=== PATIENT | male | born 1980 | race Caucasian/White ===

== ENCOUNTER 2018-05-22 23:40 | Emergency (ER) | payer BC, OTHER ==
[2018-05-23] MEDS: ONDANSETRON 4MG/2ML VIAL (J2405) IV (00:05)
[2018-05-23] MEDS: KETOROLAC 30 MG/ML VIAL (J1885) IV (00:06)
[2018-05-23] MEDS: NS 1,000 ML IV (00:06)
[2018-05-23] MEDS: MORPHINE 4 MG/ML 1ML VIAL/SYRINGE (J2270) IV ×2 (00:06→01:03)
[2018-05-23 00:17] LABS: BASO # 0.1 10^3/uL (0.0-0.2); BASO % 0.5 % (0.0-1.0); EOS # 0.1 10^3/uL (0.0-0.50); EOS % 0.9 % (0.0-3.0); HEMATOCRIT 42.9 % (42.0-52.0); HEMOGLOBIN 14.5 g/dl (13.5-17.5); IMMATURE GRANULOCYTE % 0.3 % (0-3.0); LYMPH # 1.4 10^3/uL (1.5-4.5); LYMPH % 8.9 % (24.0-44.0); MEAN CORPUSCULAR HEMOGLOBIN 28.2 pg (27.0-33.0); MEAN CORPUSCULAR HGB CONC 33.8 g/dl (32.0-36.5); MEAN CORPUSCULAR VOLUME 83.3 fl (80.0-96.0); MONO # 0.8 10^3/uL (0.0-0.8); MONO % 4.9 % (0.0-5.0); NEUTROPHILS # 12.9 10^3/uL (1.8-7.7); NEUTROPHILS % 84.5 % (36.0-66.0); PLATELET COUNT, AUTOMATED 368 10^3/uL (150-450); RED BLOOD COUNT 5.15 10^6/uL (4.30-6.10); RED CELL DISTRIBUTION WIDTH 12.9 % (11.5-14.5); WHITE BLOOD COUNT 15.3 10^3/uL (4.0-10.0)
[2018-05-23 00:30] LABS: ALBUMIN 4.5 GM/DL (3.2-5.2); ALBUMIN/GLOBULIN RATIO 1.45 (1.00-1.93); ALKALINE PHOSPHATASE 77 U/L (45-117); ALT/SGPT 35 U/L (12-78); ANION GAP 13 MEQ/L (8-16); AST/SGOT 17 U/L (7-37); BILIRUBIN,DIRECT 0.1 MG/DL (0.0-0.2); BILIRUBIN,TOTAL 0.3 MG/DL (0.2-1.0); BLOOD UREA NITROGEN 16 MG/DL (7-18); CALCIUM LEVEL 9.6 MG/DL (8.5-10.1); CARBON DIOXIDE LEVEL 22 MEQ/L (21-32); CHLORIDE LEVEL 104 MEQ/L (98-107); CREATININE FOR GFR 1.37 MG/DL (0.70-1.30); GLOMERULAR FILTRATION RATE > 60.0 (>60); GLUCOSE, FASTING 162 MG/DL (70-100); LIPASE 80 U/L (73-393); POTASSIUM SERUM 3.4 MEQ/L (3.5-5.1); SODIUM LEVEL 139 MEQ/L (136-145); TOTAL PROTEIN 7.6 GM/DL (6.4-8.2)
[2018-05-23] MEDS: METOCLOPRAMIDE INJ 10MG/2ML VIAL (J2765) IV (01:00)
[2018-05-23] MEDS: PERCOCET 5MG/325MG TAB PO (02:41)
[2018-05-23 03:47] LABS: KETONE, URINE AUTO RFX TRACE mg/dL (NEGATIVE); LEUKOCYTE ESTERASE UR AUTO RFX NEGATIVE (NEGATIVE); MUCUS, URINE RFX SMALL (NEGATIVE); NITRITE, URINE AUTO RFX NEGATIVE (NEGATIVE); RBC, URINE AUTO RFX TNTC /HPF (0-3); SPECIFIC GRAVITY UR AUTO RFX 1.024 (1.002-1.035); SQUAM EPITHELIAL CELL UR AURFX 0 /HPF (0-6); WBC, URINE AUTO RFX 1 /HPF (0-3)
[2018-05-23] MEDS: TAMSULOSIN 0.4 MG CAP PO (05:49)
[2018-05-23] MEDS: CIPROFLOXACIN 500 MG TAB PO (05:49)
[2018-05-23] MEDS: OXYCODONE/APAP 5MG/325MG(BULK FOR ED) 1 TABLET PO (05:49)
== END 2018-05-23 05:54 | disposition home or self-care (01) ==
LOC: M ED 23:40
DX: N20.1 Calculus of ureter (principal); R11.2 Nausea with vomiting, unspecified; I10 Essential (primary) hypertension; Z79.899 Other long term (current) drug therapy
CPT/HCPCS: J2270

== ENCOUNTER 2018-05-28 00:05 | Emergency (ER) | payer BC ==
[2018-05-28] MEDS: KETOROLAC 30 MG/ML VIAL (J1885) IV ×2 (00:37)
[2018-05-28] MEDS ORDERED: ONDANSETRON 4MG/2ML VIAL (J2405) As Ordered ×2 (00:41)
[2018-05-28] MEDS: ONDANSETRON 4MG/2ML VIAL (J2405) IV ×2 (00:43)
[2018-05-28 00:46] LABS: BASO # 0.1 10^3/uL (0.0-0.2); BASO % 0.4 % (0.0-1.0); EOS # 0.1 10^3/uL (0.0-0.50); EOS % 0.5 % (0.0-3.0); HEMATOCRIT 40.3 % (42.0-52.0); HEMOGLOBIN 13.5 g/dl (13.5-17.5); IMMATURE GRANULOCYTE % 0.4 % (0-3.0); LYMPH % 6.9 % (24.0-44.0); MEAN CORPUSCULAR HGB CONC 33.5 g/dl (32.0-36.5); MEAN CORPUSCULAR VOLUME 83.6 fl (80.0-96.0); MONO # 0.5 10^3/uL (0.0-0.8); MONO % 3.6 % (0.0-5.0); NEUTROPHILS # 13.1 10^3/uL (1.8-7.7); NEUTROPHILS % 88.2 % (36.0-66.0); PLATELET COUNT, AUTOMATED 381 10^3/uL (150-450); RED BLOOD COUNT 4.82 10^6/uL (4.30-6.10); WHITE BLOOD COUNT 14.9 10^3/uL (4.0-10.0)
[2018-05-28 01:03] LABS: ALBUMIN 4.3 GM/DL (3.2-5.2); ALBUMIN/GLOBULIN RATIO 1.43 (1.00-1.93); ALKALINE PHOSPHATASE 72 U/L (45-117); ALT/SGPT 36 U/L (12-78); ANION GAP 13 MEQ/L (8-16); AST/SGOT 16 U/L (7-37); BILIRUBIN,TOTAL 0.4 MG/DL (0.2-1.0); BLOOD UREA NITROGEN 20 MG/DL (7-18); CALCIUM LEVEL 8.9 MG/DL (8.5-10.1); CARBON DIOXIDE LEVEL 25 MEQ/L (21-32); CHLORIDE LEVEL 102 MEQ/L (98-107); CREATININE FOR GFR 1.34 MG/DL (0.70-1.30); GLOMERULAR FILTRATION RATE > 60.0 (>60); GLUCOSE, FASTING 138 MG/DL (70-100); LIPASE 58 U/L (73-393); POTASSIUM SERUM 3.8 MEQ/L (3.5-5.1); SODIUM LEVEL 140 MEQ/L (136-145); TOTAL PROTEIN 7.3 GM/DL (6.4-8.2)
[2018-05-28 01:43] LABS: AMORPHOUS SEDIMENT MODERATE (NEGATIVE); APPEARANCE, URINE CLOUDY (CLEAR); BACTERIA, URINE AUTO NEGATIVE (NEGATIVE); BILIRUBIN, URINE AUTO NEGATIVE (NEGATIVE); BLOOD, URINE BLOOD 1+ (NEGATIVE); COLOR, URINE YELLOW (YELLOW); GLUCOSE, URINE (UA) AUTO 1+ mg/dL (NEGATIVE); KETONE, URINE AUTO 1+ mg/dL (NEGATIVE); LEUKOCYTE ESTERASE, URINE AUTO NEGATIVE (NEGATIVE); MUCUS, URINE SMALL (NEGATIVE); NITRITE, URINE AUTO NEGATIVE (NEGATIVE); PROTEIN, URINE AUTO NEGATIVE (NEGATIVE); RBC, URINE AUTO 23 /HPF (0-3); SPECIFIC GRAVITY URINE AUTO 1.023 (1.002-1.035); SQUAMOUS EPITHELIAL CELL UR AU 0 /HPF (0-6); WBC, URINE AUTO 0 /HPF (0-3)
[2018-05-28] MEDS: MORPHINE 4 MG/ML 1ML VIAL/SYRINGE (J2270) IV ×2 (02:06)
== END 2018-05-28 02:31 | disposition home or self-care (01) ==
LOC: M ED 00:05
DX: N20.1 Calculus of ureter (principal); I10 Essential (primary) hypertension; Z79.899 Other long term (current) drug therapy; Z88.7 Allergy status to serum and vaccine
CPT/HCPCS: J2270

== ENCOUNTER → 2018-06-02 | Outpatient (REF) | payer BC ==
[2018-06-02 16:35] LABS: APPEARANCE, URINE CLEAR (CLEAR); BACTERIA, URINE AUTO NEGATIVE (NEGATIVE); BILIRUBIN, URINE AUTO NEGATIVE (NEGATIVE); BLOOD, URINE BLOOD NEGATIVE (NEGATIVE); COLOR, URINE YELLOW (YELLOW); GLUCOSE, URINE (UA) AUTO NEGATIVE (NEGATIVE); KETONE, URINE AUTO NEGATIVE (NEGATIVE); LEUKOCYTE ESTERASE, URINE AUTO NEGATIVE (NEGATIVE); MUCUS, URINE SMALL (NEGATIVE); NITRITE, URINE AUTO NEGATIVE (NEGATIVE); PROTEIN, URINE AUTO NEGATIVE (NEGATIVE); RBC, URINE AUTO 0 /HPF (0-3); SPECIFIC GRAVITY URINE AUTO 1.019 (1.002-1.035); SQUAMOUS EPITHELIAL CELL UR AU 0 /HPF (0-6); WBC, URINE AUTO 2 /HPF (0-3)
[2018-06-02 17:04] LABS: HEMATOCRIT 46.1 % (42.0-52.0); HEMOGLOBIN 14.8 g/dl (13.5-17.5); MEAN CORPUSCULAR HEMOGLOBIN 27.8 pg (27.0-33.0); MEAN CORPUSCULAR HGB CONC 32.1 g/dl (32.0-36.5); MEAN CORPUSCULAR VOLUME 86.5 fl (80.0-96.0); PLATELET COUNT, AUTOMATED 460 10^3/uL (150-450); RED BLOOD COUNT 5.33 10^6/uL (4.30-6.10); RED CELL DISTRIBUTION WIDTH 13.3 % (11.5-14.5); WHITE BLOOD COUNT 8.5 10^3/uL (4.0-10.0)
[2018-06-02 17:39] LABS: INR 0.98; PARTIAL THROMBOPLASTIN TIME 34.5 SECONDS (25.4-37.6); PROTHROMBIN TIME 13.1 SECONDS (12.1-14.4)
== END ==
LOC: M LABSMT 10:51
DX: Z01.818 Encounter for other preprocedural examination (principal); N20.0 Calculus of kidney
CPT/HCPCS: 85610

== ENCOUNTER 2018-06-05 07:17 | Day surgery (SDC) | payer BC ==
[~2018-06-05 07:17] MED LIST: LIDOCAINE 1% MDV 20ML VIAL SQ
[2018-06-05] MEDS: LR 1,000 ML IV (07:30)
[2018-06-05] MEDS ORDERED: ONDANSETRON 4MG/2ML VIAL (J2405) As Ordered (08:11)
[2018-06-05] MEDS ORDERED: PROPOFOL 200 MG/20 ML VIAL As Ordered (08:11)
[2018-06-05] MEDS ORDERED: LIDOCAINE 2% INJ 100 MG/5 ML SDV (FOR ANES.) As Ordered (08:11)
[2018-06-05] MEDS ORDERED: dexameTHASONE 4 MG/ML 1ML VIAL (J1100) As Ordered ×2 (08:11)
[2018-06-05] MEDS ORDERED: MIDAZOLAM INJ 2 MG/2 ML VIAL (J2250) As Ordered (08:11)
[2018-06-05] MEDS ORDERED: fentaNYL 250 MCG/5 ML INJECTION (J3010) As Ordered (08:12)
[2018-06-05] MEDS ORDERED: FUROSEMIDE 100 MG/10 ML VIAL (J1940) As Ordered ×2 (08:33)
[2018-06-05] MEDS: CONRAY-60 60% 50ML VIAL (Q9961) As Ordered (10:08)
[2018-06-05] MEDS ORDERED: fentaNYL 100 MCG/2 ML INJECTION (J3010) IV (10:45)
[2018-06-05] MEDS ORDERED: LR 1,000 ML IV (10:45)
[2018-06-05] MEDS ORDERED: PERCOCET 5MG/325MG TAB PO ×2 (10:45)
[2018-06-05] MEDS ORDERED: ONDANSETRON 4MG/2ML VIAL (J2405) IV (10:45)
[2018-06-05] MEDS: PERCOCET 5MG/325MG TAB PO (11:49)
== END 2018-06-05 12:17 | disposition home or self-care (01) ==
LOC: M SDC 07:17
DX: N20.1 Calculus of ureter (principal); N20.0 Calculus of kidney; I10 Essential (primary) hypertension; Z79.899 Other long term (current) drug therapy
CPT/HCPCS: 52352

== ENCOUNTER 2020-12-23 14:40 | Emergency (ER) | payer BC ==
[~2020-12-23] VITALS: Ht 170.2 cm; Wt 72.2 kg
[~2020-12-23 14:40] MED LIST changes: +CIPR-249 PO; +FLOM0.4C39 PO; -LIDOCAINE 1% MDV 20ML VIAL SQ; +LIPI10TA PO; +LISI-898 PO; +LISI10TA22 PO; +PERC5TAB12 PO; +ZOFR4TAB14 PO; +ZOFR4TAB14 SL
[2020-12-23] MEDS ORDERED: LISI10TA15 PO (14:52)
[2020-12-23] MEDS ORDERED: ONDANSETRON 4MG/2ML VIAL IV ONE (15:35)
[2020-12-23 15:45] LABS: BASO % 0.4 % (0.0-1.0); EOS % 0.3 % (0.0-3.0); HEMOGLOBIN 16.9 g/dl (13.5-17.5); LYMPH # 2.1 10^3/uL (1.5-5.0); LYMPH % 20.1 % (24.0-44.0); MEAN CORPUSCULAR HEMOGLOBIN 28.5 pg (27.0-33.0); MEAN CORPUSCULAR HGB CONC 33.8 g/dl (32.0-36.5); MEAN CORPUSCULAR VOLUME 84.3 fl (80.0-96.0); MONO # 0.7 10^3/uL (0.0-0.8); MONO % 6.8 % (2.0-8.0); NEUTROPHILS # 7.4 10^3/uL (1.5-8.5); NEUTROPHILS % 72.2 % (36.0-66.0); PLATELET COUNT, AUTOMATED 441 10^3/uL (150-450); RED BLOOD COUNT 5.93 10^6/uL (4.30-6.10); WHITE BLOOD COUNT 10.2 10^3/uL (4.0-10.0)
[2020-12-23 15:54] LABS: ALT/SGPT 27 U/L (12-78); BILIRUBIN,DIRECT 0.2 MG/DL (0.0-0.2); BLOOD UREA NITROGEN 22 MG/DL (7-18); CALCIUM LEVEL 9.8 MG/DL (8.5-10.1); CARBON DIOXIDE LEVEL 29 MEQ/L (21-32); CHLORIDE LEVEL 94 MEQ/L (98-107); CK-MB VALUE MASS < 1.0 NG/ML (<3.6); CPK CREATINE PHOSPHOKINASE 84 U/L (39-308); CREATININE FOR GFR 1.19 MG/DL (0.70-1.30); GLOMERULAR FILTRATION RATE > 60.0 (>60); GLUCOSE, FASTING 132 MG/DL (70-100); LIPASE 84 U/L (73-393); MB/CK RELATIVE INDEX 1.19 (< OR =4); POTASSIUM SERUM 3.3 MEQ/L (3.5-5.1); SODIUM LEVEL 132 MEQ/L (136-145); TOTAL PROTEIN 8.5 GM/DL (6.4-8.2); TROPONIN I < 0.02 NG/ML (< 0.10)
[2020-12-23] MEDS ORDERED: NS 1,000 ML IV ONE (16:05)
[2020-12-23] MEDS: GASTROGRAFIN SOLUTION 30ML PO SCH ×2 (17:31→18:01)
[2020-12-23] MEDS ORDERED: ISOVUE-370 76% 100ML VIAL As Ordered ONE (18:51)
--- NOTE | 2020-12-23 20:32 | REPVR ---
PROCEDURE INFORMATION: Exam: CT Abdomen And Pelvis With Contrast Exam date and time: 12/23/2020 7:20 PM Age: 40 years old Clinical indication: Vomiting; Additional info: Early satiation, emesis after eating TECHNIQUE: Imaging protocol: Computed tomography of the abdomen and pelvis with contrast. Radiation optimization: All CT scans at this facility use at least one of these dose optimization techniques: automated exposure control; mA and/or kV adjustment per patient size (includes targeted exams where dose is matched to clinical indication); or iterative reconstruction. Contrast material: ISOVUE 370; Contrast volume: 100 ml; Contrast route: INTRAVENOUS (IV); COMPARISON: CT ABD PELVIS W/O CONTRAST 05/28/2018 1:00 AM FINDINGS: Lungs: On the 1st image there is a 7 mm subsolid nodular opacity in the right middle lobe (series 201 image). This pulmonary nodule is not imaged in its entirety but the portion imaged is unchanged from previous CT scan dated 05/28/2018. 4 mm nodule right middle lobe (series 201, image 14), unchanged. 3.4 mm nodule in lingula (series 201, image 13), no change. Mediastinal space: Small sliding hiatal hernia. Liver: 2 liver lesions. 1.5 cm low-density lesion segment 7 right lobe of the liver. 1.3 cm low-density lesion segment 8 right lobe of the liver. Both liver lesions show some suggestion of nodular peripheral enhancement. Gallbladder and bile ducts: Normal. No calcified stones. No ductal dilation. Pancreas: Normal. No ductal dilation. Spleen: Normal. No splenomegaly. Adrenal glands: Normal. No mass. Kidneys and ureters: Three low-density lesions in the left kidney measuring less than 4 mm and too small to characterize fully. No hydronephrosis in either kidney. Stomach and bowel: There is mild thickening noted of the gastric fundus but this may be related to under distension as the stomach is relatively decompressed. Contrast seen throughout the colon down to the level of the anus. No abnormally dilated bowel loops. Minimal wall thickening suggested of the distal ileum but the small bowel is decompressed which could account for this. No perienteric inflammation. No abnormally dilated small bowel loops. Appendix: No evidence of appendicitis. Intraperitoneal space: Unremarkable. No free air. No significant fluid collection. Vasculature: Unremarkable. No abdominal aortic aneurysm. Lymph nodes: Unremarkable. No enlarged lymph nodes. Urinary bladder: Unremarkable as visualized. Reproductive: Prostate measures 3.3 x 4.4 by 3.6 cm. Bones/joints: Unremarkable. No acute fracture. Soft tissues: Small left. IMPRESSION: 1. No acute findings. 2. Mild thickening of the gastric fundus and distal ileum may be related to under distension. No perigraft strict or perienteric inflammatory changes. No abnormally dilated bowel loops. 3. Three low-density lesions in the left kidney measuring less than 4 mm and not characterized due to their small size. See below comments section. 4. Two low-density liver lesions. There are findings which suggests nodular peripheral enhancement which be consistent with hemangioma that is not confirmed on this examination. Nonemergent CT or MR with the contrast could be performed to confirm this. 5. Bilateral nodules without change from 2018. No additional follow-up based on this finding recommended. Six. Small sliding hiatal hernia. COMMENTS: Consistent with the [employer]'s Incidental Findings Committee white paper (J Am Benny Radiol 2018): Any incidental renal lesion less than 1 cm or classified as too small to characterize, or any incidental cystic renal lesion characterized as simple-appearing, is likely benign. No follow-up imaging is recommended for these lesions per consensus recommendations based on imaging criteria. Electronically signed by: Karla Leone On 12/23/2020 20:31:43 PM
--- NOTE | 2020-12-23 20:53 | ECGEPIP ---
[facility] - ED Test Date: 2020-12-23 Pat Name: JELLY ARROYO Department: Room: - Gender: Male [employer]: SHIMA : 1980 Requested By: Duy Evans Order Number: [id number] Reading MD: Marta Morales Measurements Intervals [place] Rate: 136 P: 80 RI: 130 QRS: 79 QRSD: 70 T: 74 QT: 380 QTc: 571 Interpretive Statements Sinus tachycardia Possible Left atrial enlargement prolonge qtc NSTTW abnormalities No prior Electronically Signed on 12-23-2020 20:53:12 EDT by Marta Morales
[2020-12-23] MEDS ORDERED: REGL10TA6 PO (21:50)
[2020-12-23] MEDS ORDERED: ONDA4TAB6 PO (21:50)
[2020-12-23] MEDS ORDERED: METO10TA2 PO (21:50)
[2020-12-23 22:15] VITALS: BP 119/76
--- NOTE | 2020-12-26 10:22 | ED PDOC ---
Post-Departure Follow-Up radiology report faxed to Marta Parsons MD Dec 26, 2020 10:22
== END 2020-12-23 22:58 | disposition home or self-care (01) ==
LOC: M ED 14:40
DX: K29.70 Gastritis, unspecified, without bleeding (principal); R11.2 Nausea with vomiting, unspecified; R00.0 Tachycardia, unspecified; I10 Essential (primary) hypertension; Z87.442 Personal history of urinary calculi; F12.10 Cannabis abuse, uncomplicated; K44.9 Diaphragmatic hernia without obstruction or gangrene; R93.2 Abnormal findings on diagnostic imaging of liver and biliary tract; R93.422 Abnormal radiologic findings on diagnostic imaging of left kidney
CPT/HCPCS: 74177; 80048; 80076; 82550; 82553; 83605; 83690; 84484; 85025; 93005; 93041; 96361; 96374; 99285; J2405; Q9963; Q9967

== ENCOUNTER → 2021-01-29 | Outpatient (CLI) | payer BC ==
[~2021-01-29] MED LIST changes: +LISI10TA15 PO; +METO10TA2 PO; +ONDA4TAB6 PO; +PROHANCE 279.3MG/ML 15ML VIAL As Ordered ONE; +REGL10TA6 PO
--- NOTE | 2021-01-29 18:02 | REP ---
INDICATION: LIVER LESION. COMPARISON: CT 12/23/2020. TECHNIQUE: Multiple sequences obtained in the axial coronal planes prior to and following the intravenous administration of 15 cc ProHance. FINDINGS: Two lesions are again seen in the right lobe of the liver, which are hyperintense on T2 weighted images, 1.3 cm and 1.6 cm in maximum diameter. Both of these lesions demonstrate characteristics of benign hemangiomas. There is initial peripheral nodular enhancement with gradual filling in of lesions with contrast. No other liver lesion is seen. Spleen, adrenals and pancreas are unremarkable. There is no evidence of biliary or pancreatic duct dilatation. The gallbladder is collapsed and grossly unremarkable. A few tiny subcentimeter cysts are seen in the left kidney. There is no hydronephrosis. There is no adenopathy or free fluid. IMPRESSION: The 2 lesions seen in the right lobe of the liver demonstrate MR characteristics of benign hemangiomas. <Electronically signed by Redd High > 01/29/21 [id number]
--- NOTE | 2021-01-30 13:49 | REP ---
INDICATION: MULTIPLE PULMONARY NODULES COMPARISON: Lung base images obtained during prior CT of the abdomen 12/23/2020 which showed nodules TECHNIQUE: Standard helical technique without intravenous contrast administration FINDINGS: There is no mediastinal or hilar adenopathy. There are no pleural or pericardial effusions. The imaged osseous structures are within normal limits. Evaluation of the lung valladares shows numerous bilateral lung nodules. The large all seen in the lung bases are unchanged from the prior exam. Largest nodule on the right is in the middle lobe which measures 9 mm. The largest nodule on the left is in the superior segment of the lower lobe, is pleural based, and measures 9 mm IMPRESSION: Multiple bilateral lung nodules the largest of which measure as described above. The remainder of the nodules are too numerous to count or individually assess. Since there are no prior chest CTs for comparison and as per the revised Fleischner society criteria a 3 month follow-up chest CT is in order. <Electronically signed by Buddy Kothari > 01/30/21 [id number]
== END ==
LOC: M RAD 16:07
PROVIDERS: ATTEND Family Medicine
DX: K76.89 Other specified diseases of liver (principal); R91.8 Other nonspecific abnormal finding of lung field
CPT/HCPCS: 71250; 74183; A9576

== ENCOUNTER → 2021-01-29 | Outpatient (CLI) | payer BC ==
[~2021-01-29] MED LIST changes: -PROHANCE 279.3MG/ML 15ML VIAL As Ordered ONE
== END ==
LOC: M RAD 16:05
PROVIDERS: ATTEND Family Medicine
DX: K76.9 Liver disease, unspecified (principal)

== ENCOUNTER → 2021-05-14 | Outpatient (CLI) | payer BC ==
--- NOTE | 2021-05-14 14:53 | REP ---
INDICATION: ABNORMAL FINDING OF LUNG FIELD COMPARISON: 01/29/2021 also without contrast TECHNIQUE: Standard helical technique without contrast FINDINGS: The mediastinum and pulmonary judd are unchanged. No mass or adenopathy has developed. There are no pleural or pericardial effusions. There is no change in the imaged upper abdomen or imaged osseous structures. Evaluation of the lung valladares shows no change in the dominant 9 mm size right middle lobe nodule and no change in the 9 mm sized dominant nodule in the superior segment of the left lower lobe. Other numerous much smaller pulmonary nodules are noted status quo. The 8 mm size nodule seen in the medial basal segment of the left lower lobe is also stable. No new abnormal nodules, masses, or opacities have developed. IMPRESSION: Stable CT findings as described above. According to the revised Fleischner society criteria the dominant nodules can now be categorized as category [address] screening is recommended. <Electronically signed by Buddy Kothari > 05/14/21 [id number]
== END ==
LOC: M PLAIMG 13:59
PROVIDERS: ATTEND Internal Medicine Pulmonary Disease
DX: R91.8 Other nonspecific abnormal finding of lung field (principal)

== ENCOUNTER → 2021-06-11 | Outpatient (CLI) | payer BC | LOC: M LABSMTC 11:35 | PROVIDERS: ATTEND Anesthesiology | DX: Z01.812 Encounter for preprocedural laboratory examination (principal); Z20.822 Contact with and (suspected) exposure to COVID-19 ==

== ENCOUNTER 2021-06-15 09:33 | Day surgery (SDC) | payer BC ==
[~2021-06-15] VITALS: Ht 170.2 cm; Wt 75.7 kg
[~2021-06-15 09:33] MED LIST changes: +LIDOCAINE 2% 100MG/5ML SDV (FOR ANES.) As Ordered ONE; +propofoL 200 MG/20 ML VIAL As Ordered ONE
[2021-06-15] MEDS: NS 1,000 ML IV ONE (10:21)
--- NOTE | 2021-06-15 11:51 | ROOR ---
Patient Name: Stu Lynn Procedure Date: 06/15/2021 11:35 AM Date of : 1980 Age: 40 Room: [facility] Gender: Male Note Status: Finalized Procedure: Upper GI endoscopy Indications: Abnormal CT of the GI tract Providers: Sundar Fernandes MD Referring MD: Jose Andres MD Requesting Provider: Medicines: Monitored Anesthesia Care Complications: No immediate complications. Procedure: Pre-Anesthesia Assessment: - Prior to the procedure, a History and Physical was performed, and patient medications and allergies were reviewed. The patient is competent. The risks and benefits of the procedure and the sedation options and risks were discussed with the patient. All questions were answered and informed consent was obtained. Patient identification and proposed procedure were verified by the physician, the nurse and the anesthesiologist in the procedure room. Mental Status Examination: alert and oriented. Airway Examination: normal oropharyngeal airway and neck mobility. Respiratory Examination: clear to auscultation. CV Examination: normal. Prophylactic Antibiotics: The patient does not require prophylactic antibiotics. Prior Anticoagulants: The patient has taken no previous anticoagulant or antiplatelet agents. ASA Grade Assessment: II - A patient with mild systemic disease. After reviewing the risks and benefits, the patient was deemed in satisfactory condition to undergo the procedure. The anesthesia plan was to use monitored anesthesia care (MAC). Immediately prior to administration of medications, the patient was re-assessed for adequacy to receive sedatives. The heart rate, respiratory rate, oxygen saturations, blood pressure, adequacy of pulmonary ventilation, and response to care were monitored throughout the procedure. The physical status of the patient was re-assessed after the procedure. The Endoscope was introduced through the mouth, and advanced to the second part of duodenum. The upper GI endoscopy was accomplished without difficulty. The patient tolerated the procedure well. Findings: The Z-line was irregular and was found 40 cm from the incisors. A small hiatal hernia was present. Scattered moderate inflammation characterized by congestion (edema), erythema and granularity was found in the gastric body and in the gastric antrum. Biopsies were taken with a cold forceps for histology. Biopsies were taken with a cold forceps for Helicobacter pylori testing. Verification of patient identification for the specimen was done by the physician and nurse using the patient's name, date and medical record number. Estimated blood loss was minimal. The duodenal bulb, second portion of the duodenum and area of the papilla were normal. Impression: - Z-line irregular, 40 cm from the incisors. - Small hiatal hernia. - Gastritis. Biopsied. - Normal duodenal bulb, second portion of the duodenum and area of the papilla. Recommendation: - Patient has a contact number available for emergencies. The signs and symptoms of potential delayed complications were discussed with the patient. Return to normal activities tomorrow. Written discharge instructions were provided to the patient. - High fiber diet. - Continue present medications. - Await pathology results. - Follow an antireflux regimen. - Telephone GI clinic for pathology results in 2 weeks. - Return to GI clinic if persistent symptoms or new symptoms. - Return to primary care physician. Procedure Code(s): --- Professional --- 69954, Esophagogastroduodenoscopy, flexible, transoral; with biopsy, single or multiple Diagnosis Code(s): --- Professional --- K22.8, Other specified diseases of esophagus K44.9, Diaphragmatic hernia without obstruction or gangrene K29.70, Gastritis, unspecified, without bleeding R93.3, Abnormal findings on diagnostic imaging of other parts of digestive tract CPT copyright 2019 [employer]. All rights reserved. The codes documented in this report are preliminary and upon data processor review may be revised to meet current compliance requirements. Sundar Fernandes MD Sundar Fernandes MD 06/15/2021 11:50:50 AM Electronically signed by Sundar Fernandes MD Number of Addenda: 0 Note Initiated On: 06/15/2021 11:35 AM Estimated Blood Loss: Estimated blood loss was minimal.
--- NOTE | 2021-06-15 12:28 | ROOR ---
Patient Name: Stu Lynn Procedure Date: 06/15/2021 11:35 AM Date of : 1980 Age: 40 Room: [facility] Gender: Male Note Status: Finalized Procedure: Colonoscopy Indications: Abnormal CT of the GI tract Providers: Sundar Fernandes MD Referring MD: Jose Andres MD Requesting Provider: Medicines: Monitored Anesthesia Care Complications: No immediate complications. Procedure: Pre-Anesthesia Assessment: - Prior to the procedure, a History and Physical was performed, and patient medications and allergies were reviewed. The patient is competent. The risks and benefits of the procedure and the sedation options and risks were discussed with the patient. All questions were answered and informed consent was obtained. Patient identification and proposed procedure were verified by the physician, the nurse and the anesthesiologist in the procedure room. Mental Status Examination: alert and oriented. Airway Examination: normal oropharyngeal airway and neck mobility. Respiratory Examination: clear to auscultation. CV Examination: normal. Prophylactic Antibiotics: The patient does not require prophylactic antibiotics. Prior Anticoagulants: The patient has taken no previous anticoagulant or antiplatelet agents. ASA Grade Assessment: II - A patient with mild systemic disease. After reviewing the risks and benefits, the patient was deemed in satisfactory condition to undergo the procedure. The anesthesia plan was to use monitored anesthesia care (MAC). Immediately prior to administration of medications, the patient was re-assessed for adequacy to receive sedatives. The heart rate, respiratory rate, oxygen saturations, blood pressure, adequacy of pulmonary ventilation, and response to care were monitored throughout the procedure. The physical status of the patient was re-assessed after the procedure. The Colonoscope was introduced through the anus and advanced to the terminal ileum, with identification of the appendiceal orifice and IC valve. The colonoscopy was performed without difficulty. The patient tolerated the procedure well. The quality of the bowel preparation was good. The terminal ileum, ileocecal valve, appendiceal orifice, and rectum were photographed. Scope insertion time was 2 minutes. Scope withdrawal time was 8 minutes. The total duration of the procedure was 16 minutes. Findings: The perianal and digital rectal examinations were normal. The terminal ileum appeared normal. Biopsies were taken with a cold forceps for histology. Verification of patient identification for the specimen was done by the physician and nurse using the patient's name, date and medical record number. Estimated blood loss was minimal. Ten sessile polyps were found in the recto-sigmoid colon, transverse colon and ascending colon. The polyps were 4 to 15 mm in size. These polyps were removed with a hot snare. Resection and retrieval were complete. Non-bleeding external and internal hemorrhoids were found during retroflexion. The hemorrhoids were medium-sized. Impression: - The examined portion of the ileum was normal. Biopsied. - Ten 4 to 15 mm polyps at the recto-sigmoid colon, in the transverse colon and in the ascending colon, removed with a hot snare. Resected and retrieved. - Non-bleeding external and internal hemorrhoids. Recommendation: - Patient has a contact number available for emergencies. The signs and symptoms of potential delayed complications were discussed with the patient. Return to normal activities tomorrow. Written discharge instructions were provided to the patient. - High fiber diet. - Continue present medications. - Await pathology results. - Repeat colonoscopy in 1 year per protocol and for surveillance of multiple polyps. - Telephone GI clinic for pathology results in 2 weeks. - Return to GI clinic if persistent symptoms or new symptoms. - Return to primary care physician. Procedure Code(s): --- Professional --- 93882, Colonoscopy, flexible; with removal of tumor(s), polyp(s), or other lesion(s) by snare technique 14570, 59, Colonoscopy, flexible; with biopsy, single or multiple Diagnosis Code(s): --- Professional --- K64.8, Other hemorrhoids K63.5, Polyp of colon R93.3, Abnormal findings on diagnostic imaging of other parts of digestive tract CPT copyright 2019 [employer]. All rights reserved. The codes documented in this report are preliminary and upon care coordinator review may be revised to meet current compliance requirements. Sundar Fernandes MD Sundar Fernandes MD 06/15/2021 12:27:47 PM Electronically signed by Sundar Fernandes MD Number of Addenda: 0 Note Initiated On: 06/15/2021 11:35 AM Estimated Blood Loss: Estimated blood loss was minimal.
[2021-06-15 12:54] VITALS: BP 118/77
== END 2021-06-15 13:18 | disposition home or self-care (01) ==
LOC: M OPP 09:33
PROVIDERS: ATTEND Internal Medicine Gastroenterology
DX: R93.3 Abnormal findings on diagnostic imaging of other parts of digestive tract (principal); K57.30 Diverticulosis of large intestine without perforation or abscess without bleeding; K64.8 Other hemorrhoids; K63.5 Polyp of colon; K62.1 Rectal polyp; K22.89 Other specified disease of esophagus; K29.70 Gastritis, unspecified, without bleeding; K44.9 Diaphragmatic hernia without obstruction or gangrene; Z79.899 Other long term (current) drug therapy; Z88.8 Allergy status to other drugs, medicaments and biological substances

== ENCOUNTER → 2021-10-22 | Outpatient (CLI) | payer BC ==
[~2021-10-22] MED LIST changes: +KETO10TAB PO; -LIDOCAINE 2% 100MG/5ML SDV (FOR ANES.) As Ordered ONE; -LISI-898 PO; -LISI10TA15 PO; +LISI10TA24 PO; +LISI5TAB11 PO; -propofoL 200 MG/20 ML VIAL As Ordered ONE
== END ==
LOC: M PLAIMG 10:14
PROVIDERS: ATTEND Family Medicine
DX: R42 Dizziness and giddiness (principal)

== ENCOUNTER → 2022-05-02 | Outpatient (REF) | payer BC | LOC: M LAB REF 16:45 | PROVIDERS: ATTEND Surgery | DX: L72.0 Epidermal cyst (principal) ==

== ENCOUNTER → 2022-06-05 | Outpatient (CLI) | payer BC | LOC: M LABSMTC 11:10 | PROVIDERS: ATTEND Anesthesiology | DX: Z01.818 Encounter for other preprocedural examination (principal); Z11.52 Encounter for screening for COVID-19 ==

== ENCOUNTER 2022-06-10 09:55 | Day surgery (SDC) | payer BC ==
[~2022-06-10] VITALS: Ht 170.2 cm; Wt 76.2 kg
[~2022-06-10 09:55] MED LIST changes: +NS 1,000 ML IV ONE; +propofoL 200 MG/20 ML VIAL As Ordered ONE
[2022-06-10] MEDS ORDERED: propofoL 200 MG/20 ML VIAL As Ordered ONE (11:50)
[2022-06-10 12:20] VITALS: BP 127/83
== END 2022-06-10 12:24 | disposition home or self-care (01) ==
LOC: M OPP 09:55
PROVIDERS: ATTEND Internal Medicine Gastroenterology
DX: Z12.11 Encounter for screening for malignant neoplasm of colon (principal); Z86.010 Personal history of colon polyps; K64.4 Residual hemorrhoidal skin tags; K64.8 Other hemorrhoids; K57.30 Diverticulosis of large intestine without perforation or abscess without bleeding; D12.8 Benign neoplasm of rectum; D12.3 Benign neoplasm of transverse colon; Z79.899 Other long term (current) drug therapy; Z88.7 Allergy status to serum and vaccine; I10 Essential (primary) hypertension; Z87.442 Personal history of urinary calculi; Z80.8 Family history of malignant neoplasm of other organs or systems

== ENCOUNTER → 2022-09-19 | Outpatient (CLI) | payer BC ==
[~2022-09-19] MED LIST changes: -NS 1,000 ML IV ONE; -propofoL 200 MG/20 ML VIAL As Ordered ONE
== END ==
LOC: M RAD 15:15
PROVIDERS: ATTEND Internal Medicine Pulmonary Disease
DX: R91.8 Other nonspecific abnormal finding of lung field (principal)

== ENCOUNTER 2023-02-22 13:33 | Emergency (ER) | payer BC ==
[~2023-02-22] VITALS: Ht 170.2 cm; Wt 75.7 kg
[2023-02-22 13:34] VITALS: BP 168/82; TEMP 98.4; O2SAT 99
[2023-02-22 14:54] LABS: BASO # 0.1 10^3/uL (0.0-0.2); BASO % 0.6 % (0.0-1.0); EOS # 0.1 10^3/uL (0.0-0.5); EOS % 0.9 % (0.0-3.0); HEMATOCRIT 49.9 % (42.0-52.0); LYMPH # 2.2 10^3/uL (1.5-5.0); LYMPH % 24.5 % (24.0-44.0); MEAN CORPUSCULAR HEMOGLOBIN 27.9 pg (27.0-33.0); MEAN CORPUSCULAR HGB CONC 34.1 g/dl (32.0-36.5); MEAN CORPUSCULAR VOLUME 81.9 fl (80.0-96.0); MONO # 0.8 10^3/uL (0.0-0.8); MONO % 9.1 % (2.0-8.0); NEUTROPHILS # 5.7 10^3/uL (1.5-8.5); NEUTROPHILS % 64.6 % (36.0-66.0); PLATELET COUNT, AUTOMATED 395 10^3/uL (150-450); RED BLOOD COUNT 6.09 10^6/uL (4.30-6.10); WHITE BLOOD COUNT 8.9 10^3/uL (4.0-10.0)
[2023-02-22 15:12] LABS: ALBUMIN 4.8 G/DL (3.2-5.2); BILIRUBIN,DIRECT 0.4 MG/DL (<0.4); BILIRUBIN,TOTAL 1.1 MG/DL (0.3-1.2); TOTAL PROTEIN 8.2 G/DL (5.7-8.2)
[2023-02-22] MEDS ORDERED: NS 1,000 ML IV ONE (16:25)
[2023-02-22] MEDS ORDERED: PANTOPRAZOLE 40MG VIAL IV ONE (16:25)
[2023-02-22] MEDS ORDERED: KCL 10MEQ/100ML SWI (KRUN) 10 MEQ in IV 1 EA IV ONE (16:25)
[2023-02-22] MEDS ORDERED: ONDANSETRON 4MG 2ML VIAL IV ONE (16:25)
[2023-02-22] MEDS ORDERED: ISOVUE-370 76% 100ML VIAL As Ordered ONE (16:32)
[2023-02-22] MEDS ORDERED: OMEP40CA4 PO (18:30)
[2023-02-22] MEDS ORDERED: ONDA4TAB6 PO (18:30)
== END 2023-02-22 18:50 | disposition home or self-care (01) ==
LOC: M ED 13:33
DX: K21.9 Gastro-esophageal reflux disease without esophagitis (principal); I10 Essential (primary) hypertension; Z87.442 Personal history of urinary calculi; Z88.7 Allergy status to serum and vaccine; Z79.899 Other long term (current) drug therapy
CPT/HCPCS: 74177; 80047; 80076; 83690; 85025; 86850; 86900; 86901; 93005; 96365; 96375; 99284; C9113; J2405; Q9967

== ENCOUNTER → 2023-10-01 | Outpatient (CLI) | payer BC ==
[~2023-10-01] MED LIST changes: +OMEP40CA4 PO
== END ==
LOC: M RAD 16:07
PROVIDERS: ATTEND Internal Medicine Pulmonary Disease
DX: R91.8 Other nonspecific abnormal finding of lung field (principal)

== ENCOUNTER → 2024-03-31 | Outpatient (CLI) | payer BC ==
[~2024-03-31] MED LIST changes: +ISOVUE-370 76% 100ML VIAL As Ordered ONE; +ONDA-282 PO; -ONDA4TAB6 PO
== END ==
LOC: M RAD 08:39
PROVIDERS: ATTEND Otolaryngology
DX: H91.03 Ototoxic hearing loss, bilateral (principal)

== ENCOUNTER → 2025-05-25 | Outpatient (REF) | payer BC ==
[~2025-05-25] MED LIST changes: -FLOM0.4C39 PO; -ISOVUE-370 76% 100ML VIAL As Ordered ONE; +TAMS-18 PO
[2025-05-25 17:42] LABS: ALT/SGPT 22 U/L (7.0-40); AST/SGOT 18 U/L (<34); CALCIUM LEVEL 9.1 MG/DL (8.5-10.1); CARBON DIOXIDE LEVEL 30 MMOL/L (20-31); CHLORIDE LEVEL 100 MMOL/L (98-107); CHOLESTEROL LEVEL 146 MG/DL (<200); CHOLESTEROL RISK RATIO 3.95 (<5); CREATININE FOR GFR 0.97 MG/DL (0.70-1.30); GLOMERULAR FILTRATION RATE > 90.0 (>60); LDL CHOLESTEROL 94.3 MG/DL (<100); NON-HDL-C 109.1 MG/DL; POTASSIUM SERUM 3.7 MMOL/L (3.5-5.1); SODIUM LEVEL 139 MMOL/L (136-145); TRIGLYCERIDES LEVEL 74 MG/DL (<150)
[2025-05-25 18:03] LABS: ESTIMATED AVERAGE GLUCOSE 120.0 MG/DL (60-110)
== END ==
LOC: M SFHCCLAY 14:22
PROVIDERS: ATTEND Physician Assistant
DX: Z00.00 Encounter for general adult medical examination without abnormal findings (principal); I10 Essential (primary) hypertension; K76.9 Liver disease, unspecified; R91.8 Other nonspecific abnormal finding of lung field; Z12.11 Encounter for screening for malignant neoplasm of colon

== ENCOUNTER → 2025-06-02 | Outpatient (CLI) | payer BC | LOC: M PLAIMG 12:05 | PROVIDERS: ATTEND Physician Assistant | DX: R91.8 Other nonspecific abnormal finding of lung field (principal); I70.0 Atherosclerosis of aorta ==

== ENCOUNTER → 2025-06-15 | Outpatient (CLI) | payer BC ==
[2025-06-24 23:58] LABS: IMMUNOGLOBULIN A CELIAC 97 mg/dL (47-310); t-TRANSGLUTAMINASE(tTG) IgA < 1.0 U/mL (<15.0); t-TRANSGLUTAMINASE(tTG) IgG < 1.0 U/mL (<15.0)
== END ==
LOC: M LAB 09:40
PROVIDERS: ATTEND Nurse Practitioner Family
DX: R19.5 Other fecal abnormalities (principal)

== ENCOUNTER → 2025-06-15 | Outpatient (REF) | payer BC | LOC: M LAB REF 10:34 | PROVIDERS: ATTEND Nurse Practitioner Family | DX: R19.5 Other fecal abnormalities (principal) ==